=== PATIENT | male | born 1950 | race African-American/Black ===

== ENCOUNTER → 2017-05-18 | Outpatient (CLI) | payer MEDICARE, OTHER ==
[~2017-05-18] MED LIST: ASPI81CH43 PO; ATO40T PO; CLOP75TA28 PO; LEVO125T66 PO
[2017-05-18 09:48] VITALS: BP 128/75
[2017-05-18 10:15] VITALS: BP 126/77
[2017-05-18 12:28] LABS: Basophils # (auto) 0 uL; Basophils % (auto) 0.7 % (0.0-2.0); CONDITION Y; Eosinophils # (auto) 0.3 uL; Eosinophils % (auto) 5.5 % (0.0-7.0); Hematocrit 45.6 % (41.0-53.0); Hemoglobin 15.4 g/dL (13.5-17.5); Lymphocytes # (auto) 1.1 uL; Lymphocytes % (auto) 22.1 % (10.0-50.0); Mean Corpuscular Hemoglobin 27.9 pg (28.0-32.0); Mean Corpuscular Hgb Conc. 33.7 g/dL (32.0-36.0); Mean Corpuscular Volume 82.9 fL (80.0-100.0); Mean Platelet Volume 11.2 fL (7.4-10.4); Monocytes # (auto) 0.6 uL; Monocytes % (auto) 11.9 % (0.0-12.0); Neutrophils # (auto) 2.9 uL; Neutrophils % (auto) 59.8 % (37.0-80.0); Platelet Count (auto) 199 10^3/uL (140-450); Red Cell Distribution Width 15.5 % (11.6-16.0); White Blood Cell 4.8 10^3/uL (4.4-10.8)
[2017-05-18 12:38] LABS: INR 1.05 (0.9-1.15); Partial Thromboplastin Time 23.6 sec (22.64-33.71); Prothrombin Time 11.4 sec (9.37-12.3)
[2017-05-18 13:22] LABS: Calcium 9.1 mg/dL (8.5-10.1); Potassium 4.2 mmol/L (3.5-5.1)
== END | disposition home or self-care (01) ==
LOC: Rad HDHVI 09:43
PROVIDERS: ATTEND Internal Medicine Cardiovascular Disease
DX: Z01.812 Encounter for preprocedural laboratory examination (principal); I10 Essential (primary) hypertension; E78.5 Hyperlipidemia, unspecified; I73.9 Peripheral vascular disease, unspecified; D64.9 Anemia, unspecified; R79.1 Abnormal coagulation profile
CPT/HCPCS: 36415; 71020; 80048; 85025; 85610; 85730; 93005; G0463

== ENCOUNTER 2017-05-23 22:24 | Observation (INO) | payer MEDICARE, OTHER ==
[~2017-05-23] VITALS: Ht 177.8 cm; Wt 79.4 kg
[2017-05-24 08:00] LABS: Basophils # (auto) 0 uL; Basophils % (auto) 0.3 % (0.0-2.0); CONDITION Y; Eosinophils # (auto) 0.1 uL; Eosinophils % (auto) 1.2 % (0.0-7.0); Hematocrit 45.6 % (41.0-53.0); Hemoglobin 15.3 g/dL (13.5-17.5); Lymphocytes # (auto) 1.3 uL; Lymphocytes % (auto) 14.2 % (10.0-50.0); Mean Corpuscular Hemoglobin 27.8 pg (28.0-32.0); Mean Corpuscular Hgb Conc. 33.5 g/dL (32.0-36.0); Monocytes # (auto) 0.9 uL; Monocytes % (auto) 9.4 % (0.0-12.0); Neutrophils # (auto) 6.9 uL; Neutrophils % (auto) 74.9 % (37.0-80.0); Platelet Count (auto) 191 10^3/uL (140-450); White Blood Cell 9.2 10^3/uL (4.4-10.8)
[2017-05-24 08:15] LABS: INR 0.96 (0.9-1.15); Partial Thromboplastin Time 23.6 sec (22.64-33.71); Prothrombin Time 10.5 sec (9.37-12.3)
[2017-05-24 08:21] LABS: Albumin 4.1 g/dL (3.4-5.0); BUN/Creatinine Ratio 12.4; Potassium 4.4 mmol/L (3.5-5.1)
[2017-05-24 08:25] LABS: Bilirubin, Total 0.5 mg/dL (0.2-1.0); Total Protein 8.3 g/dL (6.4-8.2)
[2017-05-24 10:41] LABS: Urine Bilirubin Negative (Negative); Urine Blood Negative /uL (Negative); Urine Color Yellow (Yellow); Urine Glucose Normal (Normal); Urine Ketone Negative (Negative); Urine Nitrite Negative (Negative); Urine RBC 1 /hpf (0 - 3); Urine Urobilinogen Normal (Negative); Urine pH 6.5 (5.0-8.0)
[2017-05-24 12:13] VITALS: BP 139/69
[2017-05-24] MEDS ORDERED: ENOXAPARIN SOD 80 MG/0.8ML SYRINGE SC ONE (12:15)
[2017-05-24] MEDS ORDERED: HYDROcodone-ACET 5/325MG TAB PO ONE (12:45)
== END 2017-05-24 14:07 | disposition home or self-care (01) | DRG 556 ==
LOC: ER 22:25 → OVERFLOW 05-24 12:02 → ER 05-24 14:07
PROVIDERS: ADMIT Emergency Medicine; ATTEND Emergency Medicine
DX: M25.562 Pain in left knee (principal); M79.652 Pain in left thigh; I73.9 Peripheral vascular disease, unspecified; I10 Essential (primary) hypertension; Z85.46 Personal history of malignant neoplasm of prostate
CPT/HCPCS: 36415; 71010; 80053; 81001; 84484; 85025; 85610; 85730; 93005; 93923; 93971; 96372; 99285; G0378; J1650

== ENCOUNTER → 2017-06-15 | Outpatient (CLI) | payer MEDICARE, OTHER | END | disposition home or self-care (01) | LOC: Rad HDHVI 14:23 | PROVIDERS: ATTEND Internal Medicine Cardiovascular Disease | DX: I73.9 Peripheral vascular disease, unspecified (principal) | CPT/HCPCS: 93926 ==

== ENCOUNTER → 2017-12-22 | Outpatient (CLI) | payer MEDICARE, OTHER | END | disposition home or self-care (01) | LOC: Rad HDHVI 09:33 | PROVIDERS: ATTEND Internal Medicine Cardiovascular Disease | DX: I73.9 Peripheral vascular disease, unspecified (principal); E78.5 Hyperlipidemia, unspecified | CPT/HCPCS: 93880 ==

== ENCOUNTER → 2018-01-07 | Outpatient (CLI) | payer MEDICARE, OTHER ==
[~2018-01-07] VITALS: Ht 177.8 cm; Wt 72.6 kg
== END | disposition home or self-care (01) ==
LOC: Rad HDHVI 09:28
PROVIDERS: ATTEND Internal Medicine Cardiovascular Disease
DX: R07.9 Chest pain, unspecified (principal); I73.9 Peripheral vascular disease, unspecified; E78.00 Pure hypercholesterolemia, unspecified
CPT/HCPCS: 78452; 93017; 96374; A9500

== ENCOUNTER → 2019-04-06 | Outpatient (CLI) | payer MEDICARE, OTHER ==
[~2019-04-06] VITALS: Ht 177.8 cm; Wt 74.8 kg
[2019-04-06 12:18] LABS: Basophils # (auto) 0 uL; Basophils % (auto) 0.7 % (0.0-2.0); Eosinophils # (auto) 0.2 uL; Eosinophils % (auto) 4.3 % (0.0-7.0); Hematocrit 43.6 % (41.0-53.0); Hemoglobin 14.5 g/dL (13.5-17.5); Lymphocytes # (auto) 1.1 uL; Lymphocytes % (auto) 28.3 % (10.0-50.0); Mean Corpuscular Hgb Conc. 33.2 g/dL (32.0-36.0); Mean Corpuscular Volume 84.2 fL (80.0-100.0); Monocytes # (auto) 0.4 uL; Monocytes % (auto) 11.3 % (0.0-12.0); Neutrophils # (auto) 2.2 uL; Neutrophils % (auto) 55.4 % (37.0-80.0); Nucleated Red Blood Cells % 0.2 %; Platelet Count (auto) 143 10^3/uL (140-450); Red Blood Cells 5.18 10^6/uL (4.5-5.90); Red Cell Distribution Width 15.5 % (11.8-14.3); White Blood Cell 3.9 10^3/uL (4.4-10.8)
[2019-04-06 12:19] LABS: Urine Blood Negative /uL (Negative); Urine Specific Gravity 1.018 (1.001-1.035)
[2019-04-06 12:34] LABS: Potassium 3.8 mmol/L (3.5-5.1)
[2019-04-06 12:43] LABS: Albumin 3.8 g/dL (3.4-5.0); BUN/Creatinine Ratio 11.3; Bilirubin, Total 0.5 mg/dL (0.2-1.0); Calcium 8.9 mg/dL (8.5-10.1); Free T4 (Free Thyroxine) 1.78 ng/dL (0.89-1.76); Total Protein 6.9 g/dL (6.4-8.2)
== END | disposition home or self-care (01) ==
LOC: Rad HDHVI 08:01
PROVIDERS: ATTEND Internal Medicine Cardiovascular Disease
DX: N39.0 Urinary tract infection, site not specified (principal); E29.1 Testicular hypofunction; E03.9 Hypothyroidism, unspecified; E55.9 Vitamin D deficiency, unspecified; C61 Malignant neoplasm of prostate; D51.9 Vitamin B12 deficiency anemia, unspecified; E11.9 Type 2 diabetes mellitus without complications; D64.9 Anemia, unspecified; I11.0 Hypertensive heart disease with heart failure; I50.9 Heart failure, unspecified; I73.9 Peripheral vascular disease, unspecified; Z79.899 Other long term (current) drug therapy
CPT/HCPCS: 36415; 78452; 80053; 80061; 81003; 82306; 82607; 83036; 84153; 84403; 84439; 84443; 85025; 93017; 96374; A9500

== ENCOUNTER → 2019-11-27 | Outpatient (CLI) | payer MEDICARE, OTHER ==
[2019-11-27 12:09] LABS: Basophils # (auto) 0 uL; Basophils % (auto) 0.9 % (0.0-2.0); Eosinophils # (auto) 0.1 uL; Eosinophils % (auto) 3.7 % (0.0-7.0); Hematocrit 45.2 % (41.0-53.0); Lymphocytes # (auto) 1.1 uL; Mean Corpuscular Hemoglobin 28.2 pg (28.0-32.0); Mean Corpuscular Hgb Conc. 33.2 g/dL (32.0-36.0); Mean Corpuscular Volume 84.9 fL (80.0-100.0); Monocytes # (auto) 0.4 uL; Monocytes % (auto) 10.2 % (0.0-12.0); Neutrophils # (auto) 2.3 uL; Neutrophils % (auto) 58.2 % (37.0-80.0); Nucleated Red Blood Cells % 0.1 %; Platelet Count (auto) 160 10^3/uL (140-450); Red Blood Cells 5.33 10^6/uL (4.5-5.90); Red Cell Distribution Width 14.8 % (11.8-14.3)
[2019-11-27 12:11] LABS: Potassium 4.5 mmol/L (3.5-5.1)
[2019-11-27 12:18] LABS: Albumin 3.6 g/dL (3.4-5.0); BUN/Creatinine Ratio 7.4; Bilirubin, Total 0.7 mg/dL (0.2-1.0); Calcium 9.1 mg/dL (8.5-10.1); Free T4 (Free Thyroxine) 1.63 ng/dL (0.89-1.76); Total Protein 7.2 g/dL (6.4-8.2)
[2019-11-27 13:08] LABS: Urine Blood Negative /uL (Negative); Urine Specific Gravity 1.013 (1.001-1.035)
== END | disposition home or self-care (01) ==
LOC: LAB 08:32
PROVIDERS: ATTEND Internal Medicine Cardiovascular Disease
DX: E03.9 Hypothyroidism, unspecified (principal); K90.9 Intestinal malabsorption, unspecified; C61 Malignant neoplasm of prostate; E29.1 Testicular hypofunction; N39.0 Urinary tract infection, site not specified; F51.9 Sleep disorder not due to a substance or known physiological condition, unspecified; Z79.899 Other long term (current) drug therapy
CPT/HCPCS: 36415; 80053; 80061; 81003; 82306; 82607; 83036; 84153; 84403; 84439; 84443; 85025

== ENCOUNTER → 2022-07-29 | Outpatient (CLI) | payer MEDICARE, OTHER ==
[~2022-07-29] MED LIST changes: +LEVO125T PO; -LEVO125T66 PO
[2022-07-29 11:04] LABS: Basophils # (auto) 0 10 ^3/uL (0-0.2); Basophils % (auto) 0.8 % (0.0-2.0); Eosinophils # (auto) 0.1 10 ^3/uL (0-0.8); Eosinophils % (auto) 2.5 % (0.0-7.0); Hematocrit 43.4 % (41.0-53.0); Hemoglobin 14.1 g/dL (13.5-17.5); Lymphocytes # (auto) 1.2 10 ^3/uL (0.4-5.4); Lymphocytes % (auto) 32.3 % (10.0-50.0); Mean Corpuscular Hemoglobin 27.4 pg (28.0-32.0); Mean Corpuscular Hgb Conc. 32.4 g/dL (32.0-36.0); Mean Corpuscular Volume 84.6 fL (80.0-100.0); Monocytes # (auto) 0.4 10 ^3/uL (0-1.3); Monocytes % (auto) 11.4 % (0.0-12.0); Nucleated Red Blood Cells % 0.1 %; Red Blood Cells 5.13 10^6/uL (4.5-5.90); Red Cell Distribution Width 14.7 % (11.8-14.3); White Blood Cell 3.7 10^3/uL (4.4-10.8)
[2022-07-29 12:10] LABS: Free T3 2.04 pg/mL (2.3-4.2); Free T4 (Free Thyroxine) 1.17 ng/dL (0.89-1.76); Prostate Specific Antigen 0.59 ng/mL (0.0-4.0)
[2022-07-29 12:17] LABS: Albumin 3.7 g/dL (3.4-5.0); Calcium 9.3 mg/dL (8.5-10.1); Potassium 4.1 mmol/L (3.5-5.1)
[2022-07-29 12:24] LABS: Bilirubin, Total 0.7 mg/dL (0.2-1.0); Total Protein 6.8 g/dL (6.4-8.2)
== END | disposition home or self-care (01) ==
LOC: LAB 10:48
PROVIDERS: ATTEND Internal Medicine
DX: Z12.5 Encounter for screening for malignant neoplasm of prostate (principal); Z00.00 Encounter for general adult medical examination without abnormal findings; R73.03 Prediabetes; E03.8 Other specified hypothyroidism; E78.5 Hyperlipidemia, unspecified
CPT/HCPCS: 36415; 80053; 80061; 83036; 84153; 84439; 84443; 84481; 85025

== ENCOUNTER 2022-09-30 09:51 | Emergency (ER) | payer MEDICARE, OTHER ==
[~2022-09-30] VITALS: Ht 177.8 cm; Wt 77.3 kg
[2022-09-30] MEDS ORDERED: ACET-1079 PO (11:27)
[2022-09-30] MEDS ORDERED: CYCL-837 PO (11:27)
[2022-09-30 11:56] VITALS: BP 188/98
== END 2022-09-30 12:09 | disposition home or self-care (01) ==
LOC: ER 09:51
DX: M16.12 Unilateral primary osteoarthritis, left hip (principal); E78.5 Hyperlipidemia, unspecified; I10 Essential (primary) hypertension; M54.50 Low back pain, unspecified; Z88.6 Allergy status to analgesic agent
CPT/HCPCS: 73502

== ENCOUNTER → 2022-10-28 | Outpatient (CLI) | payer MEDICARE, OTHER ==
[~2022-10-28] MED LIST changes: +ACET-1079 PO; +CYCL-837 PO
[2022-10-28 09:27] LABS: Basophils # (auto) 0 10 ^3/uL (0-0.2); Eosinophils # (auto) 0.2 10 ^3/uL (0-0.8); Hemoglobin 13.6 g/dL (13.5-17.5); Mean Corpuscular Hgb Conc. 31.9 g/dL (32.0-36.0); Red Blood Cells 5.04 10^6/uL (4.5-5.90)
[2022-10-28 09:29] LABS: Eosinophils % (auto) 3.5 % (0.0-7.0); Hematocrit 42.7 % (41.0-53.0); Lymphocytes # (auto) 1.1 10 ^3/uL (0.4-5.4); Lymphocytes % (auto) 23.4 % (10.0-50.0); Mean Corpuscular Hemoglobin 27.1 pg (28.0-32.0); Mean Corpuscular Volume 84.7 fL (80.0-100.0); Monocytes # (auto) 0.5 10 ^3/uL (0-1.3); Monocytes % (auto) 11.1 % (0.0-12.0); Red Cell Distribution Width 15.7 % (11.8-14.3); White Blood Cell 4.9 10^3/uL (4.4-10.8)
[2022-10-28 10:14] LABS: Cholesterol 245 mg/dL (< 200); Triglycerides 47 mg/dL (< 150)
[2022-10-28 10:19] LABS: HDL Cholesterol 100 mg/dL (40-59); LDL Cholesterol 144 mg/dL (< 100)
[2022-10-28 11:27] LABS: Free T4 (Free Thyroxine) 1.23 ng/dL (0.89-1.76)
[2022-10-28 11:28] LABS: Free T3 2.41 pg/mL (2.3-4.2)
== END | disposition home or self-care (01) ==
LOC: LAB 09:05
PROVIDERS: ATTEND Internal Medicine
DX: I73.9 Peripheral vascular disease, unspecified (principal); E03.9 Hypothyroidism, unspecified; D77 Other disorders of blood and blood-forming organs in diseases classified elsewhere
CPT/HCPCS: 36415; 80061; 84439; 84443; 84481; 85025